=== PATIENT | male | born 1930 | race Caucasian/White ===

== ENCOUNTER 2017-01-15 14:20 | Emergency (ER) | payer OTHER, MEDICARE, MEDICAID ==
[~2017-01-15] VITALS: Ht 170.2 cm; Wt 56.8 kg
[2017-01-15 16:06] VITALS: BP 116/63
== END 2017-01-15 16:07 | disposition home or self-care (01) ==
LOC: EMS 14:23
DX: F03.90 Unspecified dementia, unspecified severity, without behavioral disturbance, psychotic disturbance, mood disturbance, and anxiety (principal); Z86.73 Personal history of transient ischemic attack (TIA), and cerebral infarction without residual deficits
CPT/HCPCS: 99281

== ENCOUNTER 2017-01-20 07:43 | Inpatient (IN) | payer MEDICARE, MEDICAID ==
[~2017-01-20] VITALS: Ht 167.6 cm; Wt 67.1 kg
[2017-01-20] MEDS ORDERED: ACET-66 PO (08:05)
[2017-01-20] MEDS ORDERED: OXYC5 PO (08:05)
[2017-01-20] MEDS ORDERED: ONDA4 PO (08:05)
[2017-01-20] MEDS ORDERED: DSS100 PO (08:05)
[2017-01-20] MEDS ORDERED: CEPH500 PO (08:05)
[2017-01-20] MEDS ORDERED: METO-323 PO (08:05)
[2017-01-20] MEDS ORDERED: THIA1002I IM (08:05)
[2017-01-20] MEDS ORDERED: OLAN5TAB2 PO (08:05)
[2017-01-20] MEDS ORDERED: PROM25I IM (08:05)
[2017-01-20] MEDS ORDERED: FOLI1 PO (08:05)
[2017-01-20] MEDS ORDERED: ASPI81 PO (08:05)
[2017-01-20] MEDS ORDERED: QUET25TA PO (08:05)
[2017-01-20 08:39] LABS: BASOPHILS % (AUTO) 0.8 % (0.0-2.0); HEMATOCRIT 34.7 % (41-53); HEMOGLOBIN 11.2 g/dL (13.5-17.5); LYMPHOCYTES # (AUTO) 1.1 K/uL (1.0-4.8); LYMPHOCYTES % (AUTO) 8.2 % (22.0-44.0); MEAN CORPUSCULAR HEMOGLOBIN 30.4 pg (26.0-34.0); MEAN CORPUSCULAR HGB CONC 32.4 G/dL (31.0-37.0); MEAN CORPUSCULAR VOLUME 94 fL (80-100); MONOCYTES # (AUTO) 0.8 K/uL (0.1-1.0); MONOCYTES % (AUTO) 5.6 % (2.0-9.0); NEUTROPHILS # (AUTO) 11.5 K/uL (1.8-7.7); NEUTROPHILS % (AUTO) 84.4 % (40.0-70.0); PLATELET COUNT (AUTO) 419 K/uL (150-450); RED CELL DISTRIBUTION WIDTH 15.3 % (11.5-14.5); WHITE BLOOD COUNT (AUTO) 13.7 K/uL (4.5-11.0)
[2017-01-20 08:46] LABS: ANION GAP 11 mmol/L (8-16); CALCIUM, TOTAL 9.4 mg/dL (8.8-10.5); CARBON DIOXIDE 25 mmol/L (22-29); CHLORIDE 105 mmol/L (98-107); CREATININE 1.31 mg/dL (0.60-1.30); GLOMERULAR FILTR. RATE CALC 52 mL/min (>60); POTASSIUM 4.8 mmol/L (3.5-5.1); SODIUM SERUM 141 mmol/L (136-145); UREA NITROGEN, BLOOD 24 mg/dL (7-18)
[2017-01-20 08:52] LABS: ALANINE AMINOTRANSFERASE 18 U/L (12-78); ALBUMIN 3.5 g/dL (3.4-5.0); ASPARTATE AMINOTRANSFERASE 18 U/L (15-37); BILIRUBIN,TOTAL 0.5 mg/dL (0.1-1.0); CREATINE KINASE, TOTAL 33 U/L (39-308); INR 1.1 (0.9-1.1); PROTHROMBIN TIME 11.5 SEC (9.4-11.6); TOTAL PROTEIN, SERUM 7.9 g/dL (6.4-8.2)
[2017-01-20 09:14] LABS: B-TYPE NATRIURETIC PEPTIDE 476 pg/mL (0-100)
[2017-01-20 09:47] LABS: ADD UA MICROSCOPIC YES; APPEARANCE,URINE TURBID (CLEAR); GLUCOSE, URINE (UA) NEGATIVE (NEGATIVE); KETONES,URINE NEGATIVE (NEGATIVE); LEUKOCYTE ESTERASE ,URINE LARGE (NEGATIVE); OCCULT BLOOD,URINE LARGE (NEGATIVE); PROTEIN,URINE TRACE (NEGATIVE)
[2017-01-20 09:53] LABS: SQUAMOUS EPITHELIAL CELL,UR Few /LPF (None Seen); WBC,URINE >100 /HPF (0-5)
[2017-01-20] MEDS ORDERED: CefTRIAXone 1 GM/DEXTROSE 50 ML IV ONE (10:30)
[2017-01-20] MEDS ORDERED: THIAMINE HCL 100 MG/ML 2ML VIAL IM SCH (15:45)
[2017-01-20] MEDS ORDERED: DOCUSATE SODIUM 100 MG CAPSULE PO SCH (15:45)
[2017-01-20] MEDS ORDERED: OxyCODONE HCL/ACETAMINOPHEN 5-325 MG TABLET PO PRN ×2 (16:00)
[2017-01-20] MEDS ORDERED: 0.9% SODIUM CHLORIDE 10 ML SYRINGE IVP PRN (16:00)
[2017-01-20] MEDS ORDERED: ONDANSETRON HCL 4 MG/2 ML VIAL IVP PRN (16:00)
[2017-01-20 16:20] VITALS: BP 147/69
[2017-01-20] MEDS: OxyCODONE HCL 5 MG IR TABLET PO SCH (17:02)
[2017-01-20] MEDS: FOLIC ACID 1 MG TABLET PO SCH (17:02)
[2017-01-20] MEDS: PANTOPRAZOLE SODIUM 40 MG/VIAL IVP SCH (17:02)
[2017-01-20] MEDS: ASPIRIN 81 MG CHEWABLE TABLET PO SCH (17:03)
[2017-01-20] MEDS: QUEtiapine FUMARATE 25 MG TABLET PO SCH (17:03)
[2017-01-20] MEDS: SODIUM CHLORIDE 0.9% 1,000 ML IV SCH (17:04)
[2017-01-20] MEDS ORDERED: PNEUMOCOCCAL VACCINE POLYVALENT 0.5 ML VIAL [PPSV23] IM ONE (18:15)
[2017-01-20 20:17] VITALS: BP 94/55
[2017-01-20] MEDS: METOPROLOL SUCCINATE 25 MG ER TABLET PO SCH (21:00)
[2017-01-20] MEDS: OLANZapine 5 MG TABLET PO SCH (21:26)
[2017-01-20] MEDS: DOCUSATE SODIUM 100 MG CAPSULE PO SCH (21:26)
[2017-01-20 23:17] VITALS: BP 113/58
[2017-01-21 05:05] VITALS: BP 111/54
[2017-01-21] MEDS: SODIUM CHLORIDE 0.9% 1,000 ML IV SCH ×2 (05:27→13:07)
[2017-01-21] MEDS: OxyCODONE HCL 5 MG IR TABLET PO SCH ×6 (05:27→22:59)
[2017-01-21 06:43] LABS: BASOPHILS % (AUTO) 0.6 % (0.0-2.0); EOSINOPHILS % (AUTO) 5.9 % (1.0-6.0); HEMATOCRIT 28.4 % (41-53); HEMOGLOBIN 9.3 g/dL (13.5-17.5); LYMPHOCYTES # (AUTO) 1.2 K/uL (1.0-4.8); LYMPHOCYTES % (AUTO) 14.5 % (22.0-44.0); MEAN CORPUSCULAR HEMOGLOBIN 30.6 pg (26.0-34.0); MEAN CORPUSCULAR HGB CONC 32.6 G/dL (31.0-37.0); MEAN CORPUSCULAR VOLUME 94 fL (80-100); MONOCYTES # (AUTO) 0.7 K/uL (0.1-1.0); MONOCYTES % (AUTO) 8.7 % (2.0-9.0); NEUTROPHILS # (AUTO) 5.9 K/uL (1.8-7.7); NEUTROPHILS % (AUTO) 70.3 % (40.0-70.0); PLATELET COUNT (AUTO) 281 K/uL (150-450); RED BLOOD CELL COUNT(AUTO) 3.03 MIL/uL (4.50-5.90); RED CELL DISTRIBUTION WIDTH 15.1 % (11.5-14.5); WHITE BLOOD COUNT (AUTO) 8.4 K/uL (4.5-11.0)
[2017-01-21 07:05] LABS: ANION GAP 7 mmol/L (8-16); CALCIUM, TOTAL 8.3 mg/dL (8.8-10.5); CARBON DIOXIDE 27 mmol/L (22-29); CHLORIDE 108 mmol/L (98-107); CREATININE 1.11 mg/dL (0.60-1.30); GLOMERULAR FILTR. RATE CALC > 60 mL/min (>60); POTASSIUM 4.2 mmol/L (3.5-5.1); SODIUM SERUM 142 mmol/L (136-145); UREA NITROGEN, BLOOD 20 mg/dL (7-18)
[2017-01-21] MEDS: METOPROLOL SUCCINATE 25 MG ER TABLET PO SCH ×2 (08:29→20:36)
[2017-01-21] MEDS: ASPIRIN 81 MG CHEWABLE TABLET PO SCH (08:30)
[2017-01-21] MEDS: THIAMINE HCL 100 MG TABLET PO SCH (08:31)
[2017-01-21] MEDS: QUEtiapine FUMARATE 25 MG TABLET PO SCH (08:31)
[2017-01-21] MEDS: DOCUSATE SODIUM 100 MG CAPSULE PO SCH ×2 (08:31→20:36)
[2017-01-21] MEDS: FOLIC ACID 1 MG TABLET PO SCH (08:31)
[2017-01-21] MEDS: PANTOPRAZOLE SODIUM 40 MG/VIAL IVP SCH (08:32)
[2017-01-21 08:34] VITALS: BP 125/68
[2017-01-21] MEDS: CefTRIAXone 1 GM/DEXTROSE 50 ML IV SCH (09:53)
[2017-01-21 12:26] VITALS: BP 116/67
[2017-01-21 15:52] VITALS: BP 137/66
[2017-01-21 19:17] VITALS: BP 126/66
[2017-01-21] MEDS: OLANZapine 5 MG TABLET PO SCH (20:36)
[2017-01-21 23:02] VITALS: BP 127/60
[2017-01-22 04:03] VITALS: BP 122/56
[2017-01-22] MEDS: OxyCODONE HCL 5 MG IR TABLET PO SCH ×3 (05:23→17:20)
[2017-01-22] MEDS: SODIUM CHLORIDE 0.9% 1,000 ML IV SCH (05:25)
[2017-01-22 06:48] LABS: BASOPHILS # (AUTO) 0.05 K/uL (0.00-0.20); BASOPHILS % (AUTO) 0.7 % (0.0-2.0); EOSINOPHILS # (AUTO) 0.64 K/uL (0.00-0.70); EOSINOPHILS % (AUTO) 8.45 % (1.0-6.0); HEMATOCRIT 27.7 % (41-53); HEMOGLOBIN 9.1 g/dL (13.5-17.5); LYMPHOCYTES # (AUTO) 1.3 K/uL (1.0-4.8); LYMPHOCYTES % (AUTO) 16.6 % (22.0-44.0); MEAN CORPUSCULAR HEMOGLOBIN 30.7 pg (26.0-34.0); MEAN CORPUSCULAR HGB CONC 32.7 G/dL (31.0-37.0); MEAN CORPUSCULAR VOLUME 94 fL (80-100); MONOCYTES # (AUTO) 0.6 K/uL (0.1-1.0); NEUTROPHILS % (AUTO) 66.3 % (40.0-70.0); PLATELET COUNT (AUTO) 275 K/uL (150-450); RED BLOOD CELL COUNT(AUTO) 2.96 MIL/uL (4.50-5.90); RED CELL DISTRIBUTION WIDTH 15.4 % (11.5-14.5); WHITE BLOOD COUNT (AUTO) 7.5 K/uL (4.5-11.0)
[2017-01-22 07:19] VITALS: BP 114/57
[2017-01-22] MEDS: ASPIRIN 81 MG CHEWABLE TABLET PO SCH (08:54)
[2017-01-22] MEDS: PANTOPRAZOLE SODIUM 40 MG/VIAL IVP SCH (08:54)
[2017-01-22] MEDS: QUEtiapine FUMARATE 25 MG TABLET PO SCH (08:55)
[2017-01-22] MEDS: DOCUSATE SODIUM 100 MG CAPSULE PO SCH ×2 (08:55→20:55)
[2017-01-22] MEDS: FOLIC ACID 1 MG TABLET PO SCH (08:55)
[2017-01-22] MEDS: METOPROLOL SUCCINATE 25 MG ER TABLET PO SCH ×2 (08:55→20:55)
[2017-01-22] MEDS: THIAMINE HCL 100 MG TABLET PO SCH (08:55)
[2017-01-22] MEDS: CefTRIAXone 1 GM/DEXTROSE 50 ML IV SCH (09:00)
[2017-01-22 12:24] VITALS: BP 119/62
[2017-01-22 19:59] VITALS: BP 112/50
[2017-01-22] MEDS: OLANZapine 5 MG TABLET PO SCH (20:55)
[2017-01-22 23:36] VITALS: BP 106/52
[2017-01-23] MEDS: OxyCODONE HCL 5 MG IR TABLET PO SCH ×4 (00:01→18:00)
[2017-01-23 04:30] VITALS: BP 128/65
[2017-01-23 07:17] LABS: BASOPHILS % (AUTO) 0.8 % (0.0-2.0); EOSINOPHILS % (AUTO) 9.3 % (1.0-6.0); HEMATOCRIT 28.2 % (41-53); HEMOGLOBIN 9.1 g/dL (13.5-17.5); LYMPHOCYTES # (AUTO) 1.2 K/uL (1.0-4.8); LYMPHOCYTES % (AUTO) 18.1 % (22.0-44.0); MEAN CORPUSCULAR HEMOGLOBIN 30.1 pg (26.0-34.0); MEAN CORPUSCULAR HGB CONC 32.2 G/dL (31.0-37.0); MEAN CORPUSCULAR VOLUME 93 fL (80-100); MONOCYTES # (AUTO) 0.7 K/uL (0.1-1.0); MONOCYTES % (AUTO) 9.6 % (2.0-9.0); NEUTROPHILS # (AUTO) 4.3 K/uL (1.8-7.7); NEUTROPHILS % (AUTO) 62.2 % (40.0-70.0); PLATELET COUNT (AUTO) 269 K/uL (150-450); RED BLOOD CELL COUNT(AUTO) 3.02 MIL/uL (4.50-5.90); RED CELL DISTRIBUTION WIDTH 14.9 % (11.5-14.5); WHITE BLOOD COUNT (AUTO) 6.9 K/uL (4.5-11.0)
[2017-01-23 07:25] VITALS: BP 110/59
[2017-01-23 07:30] LABS: ANION GAP 8 mmol/L (8-16); CALCIUM, TOTAL 8.4 mg/dL (8.8-10.5); CARBON DIOXIDE 28 mmol/L (22-29); CHLORIDE 106 mmol/L (98-107); CREATININE 0.97 mg/dL (0.60-1.30); GLOMERULAR FILTR. RATE CALC > 60 mL/min (>60); POTASSIUM 3.7 mmol/L (3.5-5.1); SODIUM SERUM 142 mmol/L (136-145); UREA NITROGEN, BLOOD 21 mg/dL (7-18)
[2017-01-23] MEDS: DOCUSATE SODIUM 100 MG CAPSULE PO SCH ×2 (08:10→20:02)
[2017-01-23] MEDS: THIAMINE HCL 100 MG TABLET PO SCH (08:10)
[2017-01-23] MEDS: ASPIRIN 81 MG CHEWABLE TABLET PO SCH (08:10)
[2017-01-23] MEDS: FOLIC ACID 1 MG TABLET PO SCH (08:10)
[2017-01-23] MEDS: METOPROLOL SUCCINATE 25 MG ER TABLET PO SCH ×2 (08:11→20:02)
[2017-01-23] MEDS: QUEtiapine FUMARATE 25 MG TABLET PO SCH (08:11)
[2017-01-23] MEDS: PANTOPRAZOLE SODIUM 40 MG/VIAL IVP SCH (08:11)
[2017-01-23] MEDS: CefTRIAXone 1 GM/DEXTROSE 50 ML IV SCH (09:12)
[2017-01-23 11:38] VITALS: BP 111/65
[2017-01-23 17:02] VITALS: BP 122/57
[2017-01-23 19:41] VITALS: BP 115/77
[2017-01-23] MEDS: OLANZapine 5 MG TABLET PO SCH (20:02)
[2017-01-23 23:15] VITALS: BP 144/83
[2017-01-24] MEDS ORDERED: OxyCODONE HCL 5 MG IR TABLET PO PRN
[2017-01-24 05:00] VITALS: BP 108/59
[2017-01-24 06:02] LABS: BASOPHILS % (AUTO) 0.8 % (0.0-2.0); EOSINOPHILS % (AUTO) 9.5 % (1.0-6.0); HEMATOCRIT 29.8 % (41-53); HEMOGLOBIN 9.5 g/dL (13.5-17.5); LYMPHOCYTES # (AUTO) 1.2 K/uL (1.0-4.8); LYMPHOCYTES % (AUTO) 15.2 % (22.0-44.0); MEAN CORPUSCULAR HGB CONC 31.9 G/dL (31.0-37.0); MEAN CORPUSCULAR VOLUME 94 fL (80-100); MONOCYTES # (AUTO) 0.6 K/uL (0.1-1.0); NEUTROPHILS # (AUTO) 5.2 K/uL (1.8-7.7); NEUTROPHILS % (AUTO) 66.5 % (40.0-70.0); PLATELET COUNT (AUTO) 293 K/uL (150-450); RED BLOOD CELL COUNT(AUTO) 3.18 MIL/uL (4.50-5.90); RED CELL DISTRIBUTION WIDTH 14.7 % (11.5-14.5); WHITE BLOOD COUNT (AUTO) 7.8 K/uL (4.5-11.0)
[2017-01-24 06:13] LABS: CALCIUM, TOTAL 8.8 mg/dL (8.8-10.5); CREATININE 0.96 mg/dL (0.60-1.30); GLOMERULAR FILTR. RATE CALC > 60 mL/min (>60); UREA NITROGEN, BLOOD 22 mg/dL (7-18)
[2017-01-24 07:15] VITALS: BP 138/59
[2017-01-24 07:17] LABS: CARBON DIOXIDE 29 mmol/L (22-29); POTASSIUM 4.4 mmol/L (3.5-5.1); SODIUM SERUM 142 mmol/L (136-145)
[2017-01-24 07:21] LABS: ANION GAP 9 mmol/L (8-16); CHLORIDE 104 mmol/L (98-107)
[2017-01-24] MEDS: PANTOPRAZOLE SODIUM 40 MG/VIAL IVP SCH (08:50)
[2017-01-24] MEDS: METOPROLOL SUCCINATE 25 MG ER TABLET PO SCH ×2 (08:50→20:37)
[2017-01-24] MEDS: THIAMINE HCL 100 MG TABLET PO SCH (08:50)
[2017-01-24] MEDS: DOCUSATE SODIUM 100 MG CAPSULE PO SCH ×2 (08:50→20:37)
[2017-01-24] MEDS: FOLIC ACID 1 MG TABLET PO SCH (08:51)
[2017-01-24] MEDS: ASPIRIN 81 MG CHEWABLE TABLET PO SCH ×2 (08:51→09:00)
[2017-01-24] MEDS: QUEtiapine FUMARATE 25 MG TABLET PO SCH (08:51)
[2017-01-24] MEDS: CefTRIAXone 1 GM/DEXTROSE 50 ML IV SCH (08:54)
[2017-01-24 11:28] VITALS: BP 139/58
[2017-01-24 15:00] VITALS: BP 119/63
[2017-01-24 19:51] VITALS: BP 120/50
[2017-01-24] MEDS: OLANZapine 5 MG TABLET PO SCH (20:37)
[2017-01-24 23:37] VITALS: BP 131/51
[2017-01-25 05:42] VITALS: BP 112/65
[2017-01-25 06:50] LABS: ANION GAP 8 mmol/L (8-16); CALCIUM, TOTAL 8.7 mg/dL (8.8-10.5); CARBON DIOXIDE 29 mmol/L (22-29); CHLORIDE 104 mmol/L (98-107); CREATININE 0.94 mg/dL (0.60-1.30); GLOMERULAR FILTR. RATE CALC > 60 mL/min (>60); POTASSIUM 4.1 mmol/L (3.5-5.1); SODIUM SERUM 141 mmol/L (136-145); UREA NITROGEN, BLOOD 22 mg/dL (7-18)
[2017-01-25] MEDS: PANTOPRAZOLE SODIUM 40 MG/VIAL IVP SCH (09:07)
[2017-01-25] MEDS: METOPROLOL SUCCINATE 25 MG ER TABLET PO SCH ×2 (09:08→20:44)
[2017-01-25] MEDS: THIAMINE HCL 100 MG TABLET PO SCH (09:08)
[2017-01-25] MEDS: DOCUSATE SODIUM 100 MG CAPSULE PO SCH ×2 (09:08→20:44)
[2017-01-25] MEDS: FOLIC ACID 1 MG TABLET PO SCH (09:08)
[2017-01-25] MEDS: QUEtiapine FUMARATE 25 MG TABLET PO SCH (09:08)
[2017-01-25] MEDS: CefTRIAXone 1 GM/DEXTROSE 50 ML IV SCH (09:08)
[2017-01-25] MEDS: ASPIRIN 81 MG CHEWABLE TABLET PO SCH (09:08)
[2017-01-25 11:40] VITALS: BP 123/67
[2017-01-25 16:57] VITALS: BP 112/53
[2017-01-25] MEDS ORDERED: SODIUM CHLORIDE 0.9% 500 ML IV ONE (18:00)
[2017-01-25] MEDS: OLANZapine 5 MG TABLET PO SCH (20:44)
[2017-01-25 20:57] VITALS: BP 103/54
[2017-01-25 23:05] VITALS: BP 108/60
[2017-01-26 04:46] VITALS: BP 116/66
[2017-01-26 06:40] LABS: BASOPHILS % (AUTO) 0.6 % (0.0-2.0); EOSINOPHILS % (AUTO) 9.1 % (1.0-6.0); HEMATOCRIT 31.3 % (41-53); HEMOGLOBIN 10.1 g/dL (13.5-17.5); LYMPHOCYTES # (AUTO) 1.7 K/uL (1.0-4.8); LYMPHOCYTES % (AUTO) 18.4 % (22.0-44.0); MEAN CORPUSCULAR HEMOGLOBIN 30.1 pg (26.0-34.0); MEAN CORPUSCULAR HGB CONC 32.4 G/dL (31.0-37.0); MEAN CORPUSCULAR VOLUME 93 fL (80-100); MONOCYTES # (AUTO) 0.9 K/uL (0.1-1.0); MONOCYTES % (AUTO) 9.8 % (2.0-9.0); NEUTROPHILS # (AUTO) 5.6 K/uL (1.8-7.7); NEUTROPHILS % (AUTO) 62.1 % (40.0-70.0); PLATELET COUNT (AUTO) 305 K/uL (150-450); RED BLOOD CELL COUNT(AUTO) 3.36 MIL/uL (4.50-5.90); RED CELL DISTRIBUTION WIDTH 14.7 % (11.5-14.5)
[2017-01-26 07:17] LABS: ANION GAP 7 mmol/L (8-16); CALCIUM, TOTAL 8.8 mg/dL (8.8-10.5); CARBON DIOXIDE 29 mmol/L (22-29); CHLORIDE 104 mmol/L (98-107); CREATININE 1.02 mg/dL (0.60-1.30); GLOMERULAR FILTR. RATE CALC > 60 mL/min (>60); POTASSIUM 4.2 mmol/L (3.5-5.1); SODIUM SERUM 140 mmol/L (136-145); UREA NITROGEN, BLOOD 28 mg/dL (7-18)
[2017-01-26] MEDS: PANTOPRAZOLE SODIUM 40 MG/VIAL IVP SCH (08:47)
[2017-01-26] MEDS: FOLIC ACID 1 MG TABLET PO SCH (08:48)
[2017-01-26 08:49] VITALS: BP 108/64
[2017-01-26] MEDS: DOCUSATE SODIUM 100 MG CAPSULE PO SCH ×2 (08:49→20:39)
[2017-01-26] MEDS: QUEtiapine FUMARATE 25 MG TABLET PO SCH (08:49)
[2017-01-26] MEDS: METOPROLOL SUCCINATE 25 MG ER TABLET PO SCH ×2 (08:49→20:39)
[2017-01-26] MEDS: THIAMINE HCL 100 MG TABLET PO SCH (08:49)
[2017-01-26] MEDS: ASPIRIN 81 MG CHEWABLE TABLET PO SCH (08:49)
[2017-01-26] MEDS: CefTRIAXone 1 GM/DEXTROSE 50 ML IV SCH (08:50)
[2017-01-26 12:00] VITALS: BP 119/57
[2017-01-26 15:45] VITALS: BP 110/61
[2017-01-26] MEDS: OLANZapine 5 MG TABLET PO SCH (20:39)
[2017-01-27] VITALS (10 sets, daily range): BP systolic 100–149; BP diastolic 54–76
[2017-01-27 06:40] LABS: ANION GAP 8 mmol/L (8-16); CALCIUM, TOTAL 8.6 mg/dL (8.8-10.5); CARBON DIOXIDE 28 mmol/L (22-29); CHLORIDE 106 mmol/L (98-107); CREATININE 1.01 mg/dL (0.60-1.30); GLOMERULAR FILTR. RATE CALC > 60 mL/min (>60); SODIUM SERUM 142 mmol/L (136-145); UREA NITROGEN, BLOOD 28 mg/dL (7-18)
[2017-01-27 06:42] LABS: INR 1.1 (0.9-1.1); PROTHROMBIN TIME 11.9 SEC (9.4-11.6)
[2017-01-27 07:50] LABS: BASOPHILS % (AUTO) 0.6 % (0.0-2.0); EOSINOPHILS % (AUTO) 10.5 % (1.0-6.0); HEMATOCRIT 31.2 % (41-53); HEMOGLOBIN 10.1 g/dL (13.5-17.5); LYMPHOCYTES # (AUTO) 1.2 K/uL (1.0-4.8); LYMPHOCYTES % (AUTO) 15.8 % (22.0-44.0); MEAN CORPUSCULAR HEMOGLOBIN 30.1 pg (26.0-34.0); MEAN CORPUSCULAR HGB CONC 32.4 G/dL (31.0-37.0); MEAN CORPUSCULAR VOLUME 93 fL (80-100); MONOCYTES # (AUTO) 0.7 K/uL (0.1-1.0); MONOCYTES % (AUTO) 9.2 % (2.0-9.0); NEUTROPHILS # (AUTO) 4.7 K/uL (1.8-7.7); NEUTROPHILS % (AUTO) 63.9 % (40.0-70.0); PLATELET COUNT (AUTO) 261 K/uL (150-450); RED BLOOD CELL COUNT(AUTO) 3.36 MIL/uL (4.50-5.90); RED CELL DISTRIBUTION WIDTH 14.8 % (11.5-14.5); WHITE BLOOD COUNT (AUTO) 7.4 K/uL (4.5-11.0)
[2017-01-27] MEDS: PANTOPRAZOLE SODIUM 40 MG/VIAL IVP SCH ×2 (08:52→11:37)
[2017-01-27] MEDS: DOCUSATE SODIUM 100 MG CAPSULE PO SCH ×2 (09:00→20:07)
[2017-01-27] MEDS: METOPROLOL SUCCINATE 25 MG ER TABLET PO SCH ×2 (09:00→20:07)
[2017-01-27] MEDS: CefTRIAXone 1 GM/DEXTROSE 50 ML IV SCH (11:37)
[2017-01-27] MEDS: QUEtiapine FUMARATE 25 MG TABLET PO SCH (11:48)
[2017-01-27] MEDS ORDERED: HALOPERIDOL LACTATE 5 MG/ML VIAL IM ONE (13:00)
[2017-01-27] MEDS ORDERED: LIDOCAINE HCL/PF 1% 30 ML VIAL ONE (14:42)
[2017-01-27] MEDS ORDERED: IOHEXOL 240 MG/ML 50 ML VIAL ONE (14:43)
[2017-01-27] MEDS ORDERED: MIDAZOLAM HCL 2 MG/2 ML VIAL ONE (15:10)
[2017-01-27] MEDS ORDERED: FentaNYL CITRATE-PF 100 MCG/2 ML VIAL ONE (15:10)
[2017-01-27] MEDS ORDERED: FentaNYL CITRATE-PF 100 MCG/2 ML VIAL IVP ONE (15:15)
[2017-01-27] MEDS ORDERED: MIDAZOLAM HCL 2 MG/2 ML VIAL IVP ONE (15:15)
[2017-01-27] MEDS ORDERED: IOHEXOL 240 MG/ML 50 ML VIAL INVES ONE (15:20)
[2017-01-27] MEDS ORDERED: LIDOCAINE 1% 30 ML/SOD BICARB 8.4% 4 ML SQ ONE (15:25)
[2017-01-27] MEDS: THIAMINE HCL 100 MG TABLET PO SCH (17:09)
[2017-01-27] MEDS: ASPIRIN 81 MG CHEWABLE TABLET PO SCH (17:09)
[2017-01-27] MEDS: FOLIC ACID 1 MG TABLET PO SCH (17:09)
[2017-01-27] MEDS: OLANZapine 5 MG TABLET PO SCH (20:07)
[2017-01-28 05:30] VITALS: BP 120/56
[2017-01-28 06:43] LABS: ANION GAP 8 mmol/L (8-16); CALCIUM, TOTAL 8.8 mg/dL (8.8-10.5); CARBON DIOXIDE 28 mmol/L (22-29); CHLORIDE 106 mmol/L (98-107); GLOMERULAR FILTR. RATE CALC > 60 mL/min (>60); POTASSIUM 4.5 mmol/L (3.5-5.1); SODIUM SERUM 142 mmol/L (136-145); UREA NITROGEN, BLOOD 27 mg/dL (7-18)
[2017-01-28 07:23] LABS: BASOPHILS % (AUTO) 0.8 % (0.0-2.0); EOSINOPHILS % (AUTO) 8.6 % (1.0-6.0); HEMATOCRIT 32.6 % (41-53); HEMOGLOBIN 10.5 g/dL (13.5-17.5); LYMPHOCYTES # (AUTO) 1.3 K/uL (1.0-4.8); MEAN CORPUSCULAR HEMOGLOBIN 29.9 pg (26.0-34.0); MEAN CORPUSCULAR HGB CONC 32.1 G/dL (31.0-37.0); MEAN CORPUSCULAR VOLUME 93 fL (80-100); MONOCYTES # (AUTO) 0.7 K/uL (0.1-1.0); MONOCYTES % (AUTO) 7.9 % (2.0-9.0); NEUTROPHILS # (AUTO) 5.7 K/uL (1.8-7.7); NEUTROPHILS % (AUTO) 67.7 % (40.0-70.0); PLATELET COUNT (AUTO) 259 K/uL (150-450); RED CELL DISTRIBUTION WIDTH 14.8 % (11.5-14.5); WHITE BLOOD COUNT (AUTO) 8.5 K/uL (4.5-11.0)
[2017-01-28 08:00] VITALS: BP 116/61
[2017-01-28] MEDS: THIAMINE HCL 100 MG TABLET PO SCH (08:35)
[2017-01-28] MEDS: DOCUSATE SODIUM 100 MG CAPSULE PO SCH (08:35)
[2017-01-28] MEDS: QUEtiapine FUMARATE 25 MG TABLET PO SCH (08:35)
[2017-01-28] MEDS: FOLIC ACID 1 MG TABLET PO SCH (08:35)
[2017-01-28] MEDS: PANTOPRAZOLE SODIUM 40 MG/VIAL IVP SCH (08:35)
[2017-01-28] MEDS: METOPROLOL SUCCINATE 25 MG ER TABLET PO SCH (10:36)
[2017-01-28] MEDS: CefTRIAXone 1 GM/DEXTROSE 50 ML IV SCH (10:37)
[2017-01-28] MEDS: ASPIRIN 81 MG CHEWABLE TABLET PO SCH (10:38)
[2017-01-28 12:10] VITALS: BP 108/44
[2017-01-28 15:26] VITALS: BP 96/59
[2017-01-29] MEDS ORDERED: CEPH500 PO (12:42)
== END 2017-01-28 18:10 | disposition home health service (06) | DRG 871 ==
LOC: EMS 07:45 → 6N 11:34
PROVIDERS: ADMIT Internal Medicine; ATTEND Internal Medicine
PROC: 0T9B30Z Drainage of Bladder with Drainage Device, Percutaneous Approach (ICD-10-PCS; principal; 2017-01-27)
DX: A41.9 Sepsis, unspecified organism (principal); G93.41 Metabolic encephalopathy; N17.9 Acute kidney failure, unspecified; N39.0 Urinary tract infection, site not specified; N13.8 Other obstructive and reflux uropathy; E86.0 Dehydration; I25.2 Old myocardial infarction; D64.9 Anemia, unspecified; G30.9 Alzheimer's disease, unspecified; F02.80 Dementia in other diseases classified elsewhere, unspecified severity, without behavioral disturbance, psychotic disturbance, mood disturbance, and anxiety; N40.1 Benign prostatic hyperplasia with lower urinary tract symptoms; R33.8 Other retention of urine; Z79.899 Other long term (current) drug therapy; Z79.891 Long term (current) use of opiate analgesic; Z79.82 Long term (current) use of aspirin; Z79.2 Long term (current) use of antibiotics; Z96.649 Presence of unspecified artificial hip joint; Z86.73 Personal history of transient ischemic attack (TIA), and cerebral infarction without residual deficits; Z87.440 Personal history of urinary (tract) infections; Z85.828 Personal history of other malignant neoplasm of skin; Z86.718 Personal history of other venous thrombosis and embolism
CPT/HCPCS: 36245; 50393; 76700; 76937; 87086; 90471; 93005; 96365; 96366; 97116; 97161; 97530; 99285; C9113; J0696; J1630; J2250; J2405; J3010; J3411; J3490; J7030; J7040; Q9966

== ENCOUNTER 2017-01-29 12:21 | Inpatient (IN) | payer MEDICARE, MEDICAID ==
[~2017-01-29] VITALS: Ht 175.3 cm; Wt 61.9 kg
[~2017-01-29 12:21] MED LIST: ACET-66 PO; ASPI81 PO; DSS100 PO; FOLI1 PO; METO-323 PO; OLAN5TAB2 PO; ONDA4 PO; OXYC5 PO; PROM25I IM; QUET25TA PO; THIA1002I IM
[2017-01-29 12:42] LABS: GLUCOSE,POINT OF CARE 160 MG/DL (70-110)
[2017-01-29] MEDS ORDERED: CEPH500 PO (12:42)
[2017-01-29 12:59] LABS: BASOPHILS % (AUTO) 0.7 % (0.0-2.0); EOSINOPHILS % (AUTO) 7.6 % (1.0-6.0); HEMATOCRIT 31.6 % (41-53); LYMPHOCYTES # (AUTO) 0.9 K/uL (1.0-4.8); LYMPHOCYTES % (AUTO) 12.6 % (22.0-44.0); MEAN CORPUSCULAR HEMOGLOBIN 29.8 pg (26.0-34.0); MEAN CORPUSCULAR HGB CONC 31.8 G/dL (31.0-37.0); MEAN CORPUSCULAR VOLUME 94 fL (80-100); MONOCYTES # (AUTO) 0.6 K/uL (0.1-1.0); MONOCYTES % (AUTO) 8.7 % (2.0-9.0); NEUTROPHILS # (AUTO) 4.8 K/uL (1.8-7.7); NEUTROPHILS % (AUTO) 70.4 % (40.0-70.0); PLATELET COUNT (AUTO) 263 K/uL (150-450); RED BLOOD CELL COUNT(AUTO) 3.36 MIL/uL (4.50-5.90); RED CELL DISTRIBUTION WIDTH 14.7 % (11.5-14.5); WHITE BLOOD COUNT (AUTO) 6.8 K/uL (4.5-11.0)
[2017-01-29 13:12] LABS: INR 1.1 (0.9-1.1); PROTHROMBIN TIME 12.1 SEC (9.4-11.6)
[2017-01-29 13:21] LABS: ANION GAP 8 mmol/L (8-16); CALCIUM, TOTAL 8.5 mg/dL (8.8-10.5); CARBON DIOXIDE 27 mmol/L (22-29); CHLORIDE 105 mmol/L (98-107); CREATININE 1.12 mg/dL (0.60-1.30); GLOMERULAR FILTR. RATE CALC > 60 mL/min (>60); POTASSIUM 4.1 mmol/L (3.5-5.1); SODIUM SERUM 140 mmol/L (136-145); UREA NITROGEN, BLOOD 26 mg/dL (7-18)
[2017-01-29 13:24] LABS: TROPONIN I < 0.02 ng/mL (0.00-0.05)
[2017-01-29 13:28] LABS: ALANINE AMINOTRANSFERASE 15 U/L (12-78); ALBUMIN 3.1 g/dL (3.4-5.0); ASPARTATE AMINOTRANSFERASE 19 U/L (15-37); BILIRUBIN,TOTAL 0.2 mg/dL (0.1-1.0); CREATINE KINASE, TOTAL 26 U/L (39-308); TOTAL PROTEIN, SERUM 6.7 g/dL (6.4-8.2)
[2017-01-29 13:30] LABS: APPEARANCE,URINE CLOUDY (CLEAR); GLUCOSE, URINE (UA) NEGATIVE (NEGATIVE); KETONES,URINE NEGATIVE (NEGATIVE); LEUKOCYTE ESTERASE ,URINE MODERATE (NEGATIVE); OCCULT BLOOD,URINE LARGE (NEGATIVE); PROTEIN,URINE SEE CONFIRM (NEGATIVE)
[2017-01-29 13:32] LABS: AMMONIA 15 umol/L (11-32)
[2017-01-29 13:33] LABS: ADD UA MICROSCOPIC YES
[2017-01-29 13:37] LABS: SULFOSALICYLIC ACID,URINE 2+ (Negative)
[2017-01-29 13:38] LABS: RBC,URINE 26-50 /HPF (0-2); WBC,URINE 26-50 /HPF (0-5)
[2017-01-29 13:40] LABS: TRANSITIONAL EPI CELLS,URINE Few /LPF (None Seen)
[2017-01-29] MEDS ORDERED: PIPERACILLIN/TAZO 3.375 GM/D5W 50 ML IV ONE (13:45)
[2017-01-29 13:49] LABS: B-TYPE NATRIURETIC PEPTIDE 180 pg/mL (0-100)
[2017-01-29] MEDS ORDERED: ACETAMINOPHEN 325 MG TABLET PO PRN (19:00)
[2017-01-29 21:10] VITALS: BP 129/73
[2017-01-29] MEDS ORDERED: SODIUM CHLORIDE 0.9% 250 ML IV ONE (23:00)
[2017-01-29] MEDS: PIPERACILLIN/TAZO 3.375 GM/D5W 50 ML IV SCH (23:03)
[2017-01-30] VITALS (8 sets, daily range): BP systolic 100–145; BP diastolic 42–80
[2017-01-30] MEDS: HEPARIN SODIUM,PORCINE 5,000 UNITS/ML VIAL SQ SCH ×4 (00:57→23:19)
[2017-01-30] MEDS ORDERED: PNEUMOCOCCAL VACCINE POLYVALENT 0.5 ML VIAL [PPSV23] IM ONE (01:30)
[2017-01-30] MEDS: PIPERACILLIN/TAZO 3.375 GM/D5W 50 ML IV SCH ×4 (04:30→22:02)
[2017-01-30 06:55] LABS: ALANINE AMINOTRANSFERASE 15 U/L (12-78); ALBUMIN 2.9 g/dL (3.4-5.0); ANION GAP 8 mmol/L (8-16); ASPARTATE AMINOTRANSFERASE 18 U/L (15-37); BILIRUBIN,TOTAL 0.3 mg/dL (0.1-1.0); CALCIUM, TOTAL 8.3 mg/dL (8.8-10.5); CARBON DIOXIDE 28 mmol/L (22-29); CHLORIDE 106 mmol/L (98-107); CREATININE 1.13 mg/dL (0.60-1.30); GLOMERULAR FILTR. RATE CALC > 60 mL/min (>60); POTASSIUM 4.2 mmol/L (3.5-5.1); SODIUM SERUM 142 mmol/L (136-145); UREA NITROGEN, BLOOD 24 mg/dL (7-18)
[2017-01-30 07:10] LABS: IRON, SERUM 45 mcg/dL (50-175); TOTAL IRON BINDING CAPACITY 207 mcg/dL (250-450)
[2017-01-30 07:29] LABS: BASOPHILS # (AUTO) 0.05 K/uL (0.00-0.20); BASOPHILS % (AUTO) 0.7 % (0.0-2.0); EOSINOPHILS # (AUTO) 0.88 K/uL (0.00-0.70); EOSINOPHILS % (AUTO) 11.68 % (1.0-6.0); HEMATOCRIT 30.2 % (41-53); HEMOGLOBIN 9.9 g/dL (13.5-17.5); LYMPHOCYTES # (AUTO) 1.1 K/uL (1.0-4.8); LYMPHOCYTES % (AUTO) 14.9 % (22.0-44.0); MEAN CORPUSCULAR HEMOGLOBIN 30.6 pg (26.0-34.0); MEAN CORPUSCULAR HGB CONC 32.9 G/dL (31.0-37.0); MEAN CORPUSCULAR VOLUME 93 fL (80-100); MONOCYTES # (AUTO) 0.5 K/uL (0.1-1.0); MONOCYTES % (AUTO) 7.2 % (2.0-9.0); NEUTROPHILS # (AUTO) 4.9 K/uL (1.8-7.7); NEUTROPHILS % (AUTO) 65.5 % (40.0-70.0); PLATELET COUNT (AUTO) 216 K/uL (150-450); RED BLOOD CELL COUNT(AUTO) 3.25 MIL/uL (4.50-5.90); RED CELL DISTRIBUTION WIDTH 15.2 % (11.5-14.5); WHITE BLOOD COUNT (AUTO) 7.5 K/uL (4.5-11.0)
[2017-01-30] MEDS: PANTOPRAZOLE SODIUM 40 MG DR TABLET PO SCH (08:48)
[2017-01-30] MEDS: METOPROLOL SUCCINATE 25 MG ER TABLET PO SCH ×2 (08:48→20:40)
[2017-01-30] MEDS: QUEtiapine FUMARATE 25 MG TABLET PO SCH (08:48)
[2017-01-30] MEDS: DOCUSATE SODIUM 100 MG CAPSULE PO SCH (08:48)
[2017-01-30] MEDS: FOLIC ACID 1 MG TABLET PO SCH (08:49)
[2017-01-30] MEDS: ASPIRIN 81 MG CHEWABLE TABLET PO SCH (08:49)
[2017-01-30] MEDS: THIAMINE HCL 100 MG/ML 2ML VIAL IM SCH (10:09)
[2017-01-30] MEDS: OLANZapine 5 MG TABLET PO SCH (20:40)
[2017-01-31] VITALS (7 sets, daily range): BP systolic 100–136; BP diastolic 41–64
[2017-01-31] MEDS: PIPERACILLIN/TAZO 3.375 GM/D5W 50 ML IV SCH ×4 (03:55→22:37)
[2017-01-31] MEDS: QUEtiapine FUMARATE 25 MG TABLET PO SCH (08:48)
[2017-01-31] MEDS: DOCUSATE SODIUM 100 MG CAPSULE PO SCH (08:48)
[2017-01-31] MEDS: PANTOPRAZOLE SODIUM 40 MG DR TABLET PO SCH (08:48)
[2017-01-31] MEDS: ASPIRIN 81 MG CHEWABLE TABLET PO SCH (08:48)
[2017-01-31] MEDS: METOPROLOL SUCCINATE 25 MG ER TABLET PO SCH ×2 (08:48→20:50)
[2017-01-31] MEDS: FOLIC ACID 1 MG TABLET PO SCH (08:48)
[2017-01-31] MEDS: THIAMINE HCL 100 MG/ML 2ML VIAL IM SCH (08:49)
[2017-01-31] MEDS: HEPARIN SODIUM,PORCINE 5,000 UNITS/ML VIAL SQ SCH ×3 (08:49→23:25)
[2017-01-31] MEDS ORDERED: 0.9% SODIUM CHLORIDE 10 ML SYRINGE IVP PRN (12:30)
[2017-01-31] MEDS: OLANZapine 5 MG TABLET PO SCH (20:50)
[2017-02-01] MEDS: PIPERACILLIN/TAZO 3.375 GM/D5W 50 ML IV SCH ×4 (03:18→21:12)
[2017-02-01 04:20] VITALS: BP 122/61
[2017-02-01 08:05] VITALS: BP 140/71
[2017-02-01] MEDS: HEPARIN SODIUM,PORCINE 5,000 UNITS/ML VIAL SQ SCH (09:33)
[2017-02-01] MEDS: THIAMINE HCL 100 MG/ML 2ML VIAL IM SCH (09:34)
[2017-02-01] MEDS: FOLIC ACID 1 MG TABLET PO SCH (09:35)
[2017-02-01] MEDS: DOCUSATE SODIUM 100 MG CAPSULE PO SCH (09:35)
[2017-02-01] MEDS: QUEtiapine FUMARATE 25 MG TABLET PO SCH (09:35)
[2017-02-01] MEDS: ASPIRIN 81 MG CHEWABLE TABLET PO SCH (09:35)
[2017-02-01] MEDS: PANTOPRAZOLE SODIUM 40 MG DR TABLET PO SCH (09:35)
[2017-02-01] MEDS: METOPROLOL SUCCINATE 25 MG ER TABLET PO SCH ×2 (09:35→21:12)
[2017-02-01 12:01] VITALS: BP 120/54
[2017-02-01 16:08] VITALS: BP 126/59
[2017-02-01 19:14] VITALS: BP 110/56
[2017-02-01] MEDS: OLANZapine 5 MG TABLET PO SCH (21:12)
[2017-02-01 23:30] VITALS: BP 118/59
[2017-02-02] MEDS: PIPERACILLIN/TAZO 3.375 GM/D5W 50 ML IV SCH ×4 (04:39→21:45)
[2017-02-02 04:59] VITALS: BP 120/58
[2017-02-02 07:18] VITALS: BP 159/72
[2017-02-02 11:31] LABS: CALCIUM, TOTAL 7.8 mg/dL (8.8-10.5); CREATININE 1.05 mg/dL (0.60-1.30); GLOMERULAR FILTR. RATE CALC > 60 mL/min (>60); UREA NITROGEN, BLOOD 16 mg/dL (7-18)
[2017-02-02 11:33] VITALS: BP 136/89
[2017-02-02 11:33] LABS: ANION GAP 9 mmol/L (8-16); CARBON DIOXIDE 28 mmol/L (22-29); CHLORIDE 104 mmol/L (98-107); POTASSIUM 4.5 mmol/L (3.5-5.1); SODIUM SERUM 141 mmol/L (136-145)
[2017-02-02] MEDS: DOCUSATE SODIUM 100 MG CAPSULE PO SCH (11:43)
[2017-02-02] MEDS: QUEtiapine FUMARATE 25 MG TABLET PO SCH (11:43)
[2017-02-02] MEDS: ASPIRIN 81 MG CHEWABLE TABLET PO SCH (11:44)
[2017-02-02] MEDS: PANTOPRAZOLE SODIUM 40 MG DR TABLET PO SCH (11:44)
[2017-02-02] MEDS: METOPROLOL SUCCINATE 25 MG ER TABLET PO SCH ×2 (11:44→20:43)
[2017-02-02] MEDS: FOLIC ACID 1 MG TABLET PO SCH (11:44)
[2017-02-02] MEDS: THIAMINE HCL 100 MG/ML 2ML VIAL IM SCH (13:31)
[2017-02-02 14:54] VITALS: BP 130/58
[2017-02-02 19:36] VITALS: BP 109/53
[2017-02-02] MEDS ORDERED: SODIUM CHLORIDE 0.9% 100 ML ONE (19:55)
[2017-02-02] MEDS: OLANZapine 5 MG TABLET PO SCH (20:43)
[2017-02-02 20:46] VITALS: BP 114/55
[2017-02-03] VITALS: BP 114/58
[2017-02-03] MEDS: PIPERACILLIN/TAZO 3.375 GM/D5W 50 ML IV SCH ×2 (03:36→10:54)
[2017-02-03 04:12] VITALS: BP 126/68
[2017-02-03 08:36] LABS: CALCIUM, TOTAL 8.1 mg/dL (8.8-10.5); POTASSIUM 4.5 mmol/L (3.5-5.1)
[2017-02-03 08:45] LABS: CREATININE 1.21 mg/dL (0.60-1.30)
[2017-02-03 09:33] VITALS: BP 117/62
[2017-02-03] MEDS: ASPIRIN 81 MG CHEWABLE TABLET PO SCH (10:18)
[2017-02-03] MEDS: DOCUSATE SODIUM 100 MG CAPSULE PO SCH (10:18)
[2017-02-03] MEDS: FOLIC ACID 1 MG TABLET PO SCH (10:18)
[2017-02-03] MEDS: METOPROLOL SUCCINATE 25 MG ER TABLET PO SCH (10:18)
[2017-02-03] MEDS: PANTOPRAZOLE SODIUM 40 MG DR TABLET PO SCH (10:18)
[2017-02-03] MEDS: QUEtiapine FUMARATE 25 MG TABLET PO SCH (10:18)
[2017-02-03] MEDS: THIAMINE HCL 100 MG/ML 2ML VIAL IM SCH (10:54)
[2017-02-03 12:42] VITALS: BP 130/75
[2017-02-03 16:00] VITALS: BP 123/59
[2017-02-10 06:58] LABS: GLUCOSE,POINT OF CARE 92 MG/DL (70-110)
== END 2017-02-03 17:05 | DRG 871 ==
LOC: EMS 12:22 → 5N 18:56 → 5S 02-01 11:51
PROVIDERS: ADMIT Hospitalist; ATTEND Hospitalist
DX: A41.9 Sepsis, unspecified organism (principal); G93.41 Metabolic encephalopathy; N39.0 Urinary tract infection, site not specified; E44.1 Mild protein-calorie malnutrition; D64.9 Anemia, unspecified; I25.10 Atherosclerotic heart disease of native coronary artery without angina pectoris; N40.0 Benign prostatic hyperplasia without lower urinary tract symptoms; I51.7 Cardiomegaly; E88.09 Other disorders of plasma-protein metabolism, not elsewhere classified; R62.7 Adult failure to thrive; I70.0 Atherosclerosis of aorta; I10 Essential (primary) hypertension; F03.90 Unspecified dementia, unspecified severity, without behavioral disturbance, psychotic disturbance, mood disturbance, and anxiety; F32.9 Major depressive disorder, single episode, unspecified; Z96.649 Presence of unspecified artificial hip joint; Z85.828 Personal history of other malignant neoplasm of skin; Z86.718 Personal history of other venous thrombosis and embolism; Z86.73 Personal history of transient ischemic attack (TIA), and cerebral infarction without residual deficits; I25.2 Old myocardial infarction; Z68.20 Body mass index [BMI] 20.0-20.9, adult
CPT/HCPCS: 70450; 82306; 82607; 82746; 82962; 83540; 83550; 87040; 87081; 87086; 87106; 90471; 93005; 96365; 96366; 97161; 97162; 99285; G0480; J1644; J2543; J3411; J7050

== ENCOUNTER 2017-06-01 08:07 | Emergency (ER) | payer MEDICARE ==
[~2017-06-01] VITALS: Ht 175.3 cm; Wt 56.8 kg
[~2017-06-01 08:07] MED LIST changes: -OXYC5 PO
[2017-06-01 11:28] LABS: ADD UA MICROSCOPIC YES; APPEARANCE,URINE CLOUDY (CLEAR); GLUCOSE, URINE (UA) NEGATIVE (NEGATIVE); KETONES,URINE NEGATIVE (NEGATIVE); LEUKOCYTE ESTERASE ,URINE MODERATE (NEGATIVE); OCCULT BLOOD,URINE MODERATE (NEGATIVE); PH,URINE 5.5 (5.0-8.0); PROTEIN,URINE NEGATIVE (NEGATIVE)
[2017-06-01 11:56] LABS: SQUAMOUS EPITHELIAL CELL,UR Few /LPF (None Seen)
[2017-06-01] MEDS ORDERED: LIDOCAINE HCL/PF 1% 2 ML VIAL IM ONE (12:00)
[2017-06-01] MEDS ORDERED: CefTRIAXone SODIUM 1 GM/VIAL IM ONE (12:00)
[2017-06-01 14:00] VITALS: BP 124/79
== END 2017-06-01 14:42 | disposition home or self-care (01) ==
LOC: EMS 08:09
DX: T83.038A Leakage of other urinary catheter, initial encounter (principal); N39.0 Urinary tract infection, site not specified; I25.2 Old myocardial infarction; N40.0 Benign prostatic hyperplasia without lower urinary tract symptoms; Z79.82 Long term (current) use of aspirin; Z86.73 Personal history of transient ischemic attack (TIA), and cerebral infarction without residual deficits; Z85.828 Personal history of other malignant neoplasm of skin
CPT/HCPCS: 81001; 87086; 96372; 99284; J0696; J3490